=== PATIENT | female | born 1980 | race Caucasian/White ===

== ENCOUNTER 2016-07-14 14:27 | Emergency (ER) | payer OTHER ==
[2016-07-14 15:04] VITALS: BP 128/74
--- NOTE | 2016-07-14 15:23 | UC ---
Respiratory Complaint HPI - HPI Summary HPI Summary: 35 yo female with asthma presents with one week hx of cough and wheeze no f/c productive of green sputum no CP or SOB out of her MDI - History of Current Complaint Chief Complaint: UCGeneralIllness Stated Complaint: COUGH,CONGESTION Time Seen by Provider: 07/14/16 15:14 Hx Obtained From: Patient Hx Last Menstrual Period: 07/12/16 Onset/Duration: Gradual Onset, Lasting Days - 7 Timing: Constant Severity Initially: Mild Severity Currently: Moderate Pain Intensity: 2 Pain Scale Used: 0-10 Numeric Character: Cough: Productive Aggravating Factors: Deep Breaths Alleviating Factors: Bronchodilator Associated Signs And Symptoms: Positive: Wheezing, Nasal Congestion, Hoarseness Related History: Similar Episode/Dx as: - bronchtis - Allergies/Home Medications Allergies/Adverse Reactions: Allergies Allergy/AdvReac Type Severity Reaction Status Date / Time No Known Allergies Allergy Verified 07/14/16 15:04 Home Medications: Home Medications Etonogestrel [Nexplanon] 68 mg IMPLANT DAILY 07/14/16 [History Confirmed ] PMH/Surg Hx/FS Hx/Imm Hx Previously Healthy: Yes Endocrine History Of: Denies: Diabetes, Thyroid Disease Cardiovascular History Of: Denies: Cardiac Disorders, Hypertension Respiratory History Of: Reports: Asthma, Bronchitis, Pneumonia Denies: COPD GI/ History Of: Denies: Ulcer - Surgical History Surgical History: None - Family History Known Family History: Positive: Cardiac Disease, Respiratory Disease - Social History Alcohol Use: Weekly Substance Use Type: None Smoking Status (MU): Heavy Every Day Tobacco Smoker Type: Cigarettes Amount Used/How Often: 1 PPD Length of Time of Smoking/Using Tobacco: 28 Years Have You Smoked in the Last Year: Yes Cessation Counseling: Patient Advised to Stop - Immunization History Most Recent Influenza Vaccination: Not the Season Review of Systems Constitutional: Negative Skin: Negative Eyes: Negative ENT: Negative Respiratory: Cough Cardiovascular: Negative Gastrointestinal: Negative Genitourinary: Negative Motor: Negative Neurovascular: Negative Musculoskeletal: Negative Neurological: Negative Psychological: Negative All Other Systems Reviewed And Are Negative: Yes Physical Exam Triage Information Reviewed: Yes Appearance: Well-Appearing, No Pain Distress, Well-Nourished Vital Signs: Initial Vital Signs Temp 99.3 F 07/14/16 14:59 Pulse 96 07/14/16 14:59 Resp 16 07/14/16 14:59 BP 128/74 07/14/16 14:59 Pulse Ox 97 07/14/16 14:59 Vital Signs Reviewed: Yes Eyes: Positive: Conjunctiva Clear ENT: Positive: Hearing grossly normal, TMs normal. Negative: Nasal congestion, Nasal drainage, Tonsillar exudate, Trismus, Muffled/hoarse voice Dental: Negative: Gross Decay/Caries @, Abscess @ Neck: Positive: Supple. Negative: Nontender, No Lymphadenopathy Respiratory: Positive: No respiratory distress, No accessory muscle use, Wheezing - with forced expiration Cardiovascular: Positive: RRR, No Murmur Musculoskeletal: Positive: ROM Intact, No Edema Neurological Exam: Normal Neurological: Positive: Alert Psychological Exam: Normal Skin Exam: Normal UC Diagnostic Evaluation - Laboratory O2 Sat by Pulse Oximetry: 97 - normal/not hyoxic Respiratory Course/Dx - Differential Dx/Diagnosis Provider Diagnoses: acute bronchitis with bronchospasm. smoker Discharge - Discharge Plan Condition: Stable Disposition: HOME Prescriptions: Albuterol HFA INHALER* [Ventolin HFA Inhaler*] 2 puff INH QID #1 mdi Azithromycin TAB* [Zithromax TAB (Z-NICK) 250 mg #6 tabs] 250 mg PO DAILY #6 tab Prednisone [Deltasone] 40 mg PO DAILY #10 tab Patient Education Materials: Acute Bronchitis (ED) Referrals: No Primary Care Phys,NOPCP [Primary Care Provider] - Additional Instructions: recheck in 4 days if not better
== END 2016-07-14 15:28 | disposition home or self-care (01) ==
LOC: UCCORT 14:27
DX: J20.9 Acute bronchitis, unspecified (principal); F17.210 Nicotine dependence, cigarettes, uncomplicated
CPT/HCPCS: 99212; G0463

== ENCOUNTER → 2017-04-28 16:17 | Emergency (ER) | payer SELFPAY ==
[2017-04-28 19:08] VITALS: BP 124/72
--- NOTE | 2017-04-28 20:42 | UC ---
FLU HPI - HPI Summary HPI Summary: 36 yo mother of 3 c/o flu like illness c/o f/c/bodyaches x2 days. Both of her daughters tested positive for Flu last week and she is having similar sx - History of Current Complaint Chief Complaint: UCRespiratory Stated Complaint: flu symptoms Time Seen by Provider: 04/28/17 19:45 Hx Obtained From: Patient Hx Last Menstrual Period: 04/25/2017 ?: No Pain Intensity: 0 - Allergy/Home Medications Allergies/Adverse Reactions: Allergies Allergy/AdvReac Type Severity Reaction Status Date / Time No Known Allergies Allergy Verified 07/14/16 15:04 Home Medications: Home Medications Guaifenesin/Ephedrine HCl [Primatene Asthma Tablet] 04/28/17 [History] Ibuprofen 200 mg PO 04/28/17 [History] PMH/Surg Hx/FS Hx/Imm Hx - Surgical History Surgical History: None - Family History Known Family History: Positive: Cardiac Disease, Respiratory Disease - Social History Alcohol Use: Weekly Substance Use Type: None Smoking Status (MU): Heavy Every Day Tobacco Smoker Type: Cigarettes Amount Used/How Often: 1 PPD Length of Time of Smoking/Using Tobacco: 28 Years Have You Smoked in the Last Year: Yes - Immunization History Most Recent Influenza Vaccination: Not the Season Review of Systems Constitutional: Fever, Chills, Fatigue Skin: Negative Eyes: Negative ENT: Negative Respiratory: Negative Cardiovascular: Negative Gastrointestinal: Negative Genitourinary: Negative Motor: Negative Neurovascular: Negative Musculoskeletal: Myalgia Neurological: Negative Psychological: Negative All Other Systems Reviewed And Are Negative: Yes Physical Exam Triage Information Reviewed: Yes Vital Signs: Initial Vital Signs Temp 36.4 C 04/28/17 19:03 Pulse 97 04/28/17 19:03 Resp 16 04/28/17 19:03 BP 124/72 04/28/17 19:03 Pulse Ox 98 04/28/17 19:03 Eye Exam: Normal ENT Exam: Normal Dental Exam: Normal Neck exam: Normal Neck: Positive: 1 Respiratory Exam: Normal Cardiovascular Exam: Normal Abdominal Exam: Normal Musculoskeletal: Positive: Other: - diffuse body aches Neurological Exam: Normal Psychological Exam: Normal Skin Exam: Normal Flu Course/Dx - Course Course Of Treatment: Rapid flu negative but pt was exposed to the virus and now having sx. Tamiflu to be prescribed. Pt left without being d/c'd but called prescription into the pharmacy. - Differential Dx/Diagnosis Differential Diagnosis/HQI/PQRI: Influenza, Upper Respiratory Infection Provider Diagnoses: Flu-like illness. Viral syndrome Discharge - Discharge Plan Condition: Stable Disposition: HOME Prescriptions: Oseltamivir Phosphate [Tamiflu] 75 mg PO BID 5 Days #10 capsule Referrals: No Primary Care Phys,NOPCP [Primary Care Provider] -
== END | disposition home or self-care (01) ==
LOC: UCEAST 16:17
DX: B34.9 Viral infection, unspecified (principal); Z20.828 Contact with and (suspected) exposure to other viral communicable diseases; F17.210 Nicotine dependence, cigarettes, uncomplicated
CPT/HCPCS: 87502

== ENCOUNTER 2018-03-29 14:59 | Emergency (ER) | payer OTHER ==
[2018-03-29 15:25] VITALS: BP 138/77
--- NOTE | 2018-03-29 15:44 | UC ---
Abdominal Pain Female HPI - HPI Summary HPI Summary: Pt c/o RLQ pain that began 1 week ago after having intercourse. Pt states that pain is constant and worsens with intercourse. Pt denies hx of ovarian cysts, fever, frequency, urgency and dysuria. - History of Current Complaint Chief Complaint: UCGeneralIllness Stated Complaint: RT LOWER ABD PAIN X 1 WEEK Time Seen by Provider: 03/29/18 15:19 Hx Obtained From: Patient Hx Last Menstrual Period: NOT REG ?: No Onset/Duration: Sudden Onset, Lasting Days, Still Present Timing: Constant Severity Initially: Mild Severity Currently: Mild Pain Intensity: 0 Location: Discrete At: RLQ Radiates: No Radiates to: RLQ Character: Aching, Dull Aggravating Factor(s): Other: - sexual intercourse Alleviating Factor(s): Nothing Associated Signs and Symptoms: Positive: Negative - Risk Factors Ectopic Risk Factor: Maternal Age ^ 30 Ovarian Torsion Risk Factor: Reproductive Age Allergies/Adverse Reactions: Allergies Allergy/AdvReac Type Severity Reaction Status Date / Time No Known Allergies Allergy Verified 07/14/16 15:04 Home Medications: Home Medications Etonogestrel [Nexplanon] 1 each INJ DAILY 03/29/18 [History Confirmed 03/29/18] PMH/Surg Hx/FS Hx/Imm Hx Previously Healthy: Yes - Surgical History Surgical History: None - Family History Known Family History: Positive: Cardiac Disease, Respiratory Disease - Social History Occupation: Employed Full-time Lives: With Family Alcohol Use: Daily Alcohol Amount: 1-2 Substance Use Type: None Smoking Status (MU): Heavy Every Day Tobacco Smoker Type: Cigarettes Amount Used/How Often: 1 PPD Length of Time of Smoking/Using Tobacco: 28 Years Have You Smoked in the Last Year: Yes - Immunization History Most Recent Influenza Vaccination: Not the Season Review of Systems All Other Systems Reviewed And Are Negative: Yes Constitutional: Positive: Negative Skin: Positive: Negative Eyes: Positive: Negative ENT: Positive: Negative Respiratory: Positive: Negative Cardiovascular: Positive: Negative Gastrointestinal: Positive: Abdominal Pain Genitourinary: Positive: Negative, Other - pain with intercourse Motor: Positive: Negative Neurovascular: Positive: Negative Musculoskeletal: Positive: Negative Neurological: Positive: Negative Psychological: Positive: Negative Is Patient Immunocompromised?: No Physical Exam Triage Information Reviewed: Yes Appearance: Well-Appearing Vital Signs: Initial Vital Signs Temp 98.1 F 03/29/18 15:21 Pulse 87 03/29/18 15:21 Resp 15 03/29/18 15:21 BP 138/77 03/29/18 15:21 Pulse Ox 98 03/29/18 15:21 Vital Signs Reviewed: Yes Eye Exam: Normal ENT Exam: Normal Dental Exam: Normal Dental: Positive: Other: - missing teeth Neck exam: Normal Respiratory Exam: Normal Cardiovascular Exam: Normal Abdomen Description: Positive: McBurney's Point Tenderness Musculoskeletal Exam: Normal Neurological Exam: Normal Psychological Exam: Normal Skin Exam: Normal Abd Pain Female Course/Dx - Course Course Of Treatment: I discussed the results from the UA and test here with pt. [facility] - Differential Dx/Diagnosis Differential Diagnosis: Appendicitis, Ectopic , Ovarian Cyst, Pelvic Inflammatory Disease Provider Diagnosis: RLQ abdominal pain Discharge - Sign-Out/Discharge Documenting (check all that apply): Patient Departure All imaging exams completed and their final reports reviewed: No Studies - Discharge Plan Condition: Stable Disposition: HOME Patient Education Materials: Abdominal Pain (ED) Referrals: No Primary Care Phys,NOPCP [Primary Care Provider] - Additional Instructions: Please keep your appointment at: [facility], [place] in [place], [place] Address: [address] [place] [address] - Billing Disposition and Condition Condition: STABLE Disposition: Home
--- NOTE | 2018-03-31 07:13 | UC ---
- Progress Note Progress Note: Gc, CH neg no change Ljj 03/31/18 Course/Dx - Diagnoses Provider Diagnoses: RLQ abdominal pain Discharge - Sign-Out/Discharge Documenting (check all that apply): Post-Discharge Follow Up All imaging exams completed and their final reports reviewed: No Studies - Discharge Plan Condition: Stable Disposition: HOME Patient Education Materials: Abdominal Pain (ED) Referrals: No Primary Care Phys,NOPCP [Primary Care Provider] - Additional Instructions: Please keep your appointment at: [facility] in [place], [place] Address: [address] [place] [address] - Billing Disposition and Condition Condition: STABLE Disposition: Home
== END 2018-03-29 16:11 | disposition home or self-care (01) ==
LOC: UCCORT 14:59
DX: R10.31 Right lower quadrant pain (principal); F17.210 Nicotine dependence, cigarettes, uncomplicated
CPT/HCPCS: 81003; 84702; 87491; 87591; 99211; G0463